=== PATIENT | male | born 1990 | race Caucasian/White ===

== ENCOUNTER 2017-06-01 16:29 | Inpatient (IN) | payer OTHER, SELFPAY ==
[~2017-06-01 16:29] MED LIST: ISOVUE-370 76%-LOCM 1 ML ONE
[2017-06-01] MEDS ORDERED: Morphine 2 MG/ML SYRINGE ONE (16:39)
[2017-06-01] MEDS ORDERED: Ondansetron HCl/PF 4 MG/2 ML Vial ONE (17:06)
[2017-06-01 17:18] LABS: #Basophils 0.1 thou/uL (0.0-0.2); #Eosinphils 0.2 thou/uL (0.0-0.7); #Lymphocytes 2.9 thou/uL (1.20-3.40); #Monocytes 0.6 thou/uL (0.11-0.59); #Neutrophils 6.8 thou/uL (1.40-6.50); %Basophils 0.6 % (0.0-1.0); %Eosinophils 1.7 % (0.0-10.0); %Lymphocytes 27.5 % (21.0-51.0); %Monocytes 5.6 % (0.0-10.0); Mean Platelet Volume 8.9 fL (7.4-10.4); Red Blood Cell (RBC) Count 5.01 mill/uL (4.70-6.10); White Blood Cell (WBC) Count 10.5 thou/uL (4.8-10.8)
[2017-06-01 17:24] LABS: Lactic Acid - Sepsis 2.5 mmol/L (0.5-2.2)
[2017-06-01 17:25] LABS: Prothrombin Time 14.2 SEC (12.0-14.7)
[2017-06-01 17:28] LABS: ALT (SGPT) 17 U/L (8-55); AST (SGOT) 26 U/L (5-34); Alkaline Phosphatase 73 U/L (40-150); Anion Gap 11 mmol/L (10-20); BUN (Urea Nitrogen) 9 mg/dL (8.9-20.6); Bilirubin, Total 0.3 mg/dL (0.2-1.2); Calc. Creatinine Clearance 0 mL/min (70-130); Calcium 8.2 mg/dL (7.8-10.44); Carbon Dioxide 22 mmol/L (22-29); Chloride 108 mmol/L (98-107); Estimated GFR-MDRD Greater than 90; Globulin 2.4 g/dL (2.4-3.5); Lipase 71 U/L (8-78); Protein, Total 6.2 g/dL (6.0-8.3)
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
--- NOTE | 2017-06-01 18:22 | CT ---
CONTRAST ENHANCED CT IMAGES OF THE CHEST AND ABDOMEN AND PELVIS WITH SAGITTAL AND CORONAL RECONSTRUC TION IMAGES OF THE THORACIC AND LUMBAR SPINE 06/01/17 HISTORY: Trauma with pain. CT CHEST: The lungs are well aerated. No evidence of rib fractures seen. The scapula, clavicle and sternum are unremarkable. No evidence of pulmonary parenchymal lesions seen. No evidence of hemo or pneumothora x seen. CT ABDOMEN AND PELVIS: Demonstrates the liver, spleen, gallbladder, pancreas, adrenal glands, and kidneys to be unremarkabl e. No evidence of periaortic lymphadenopathy seen. Osseous structures in the abdomen and pelvis are unremarkable. Sagittal and coronal reconstructed images of the thoracic and lumbar spine demonstrate minimal T1 an terior aspect compression fracture. No other osseous lesions seen. IMPRESSION: Again, subtle T1 compression fracture is seen. No other significant abnormality seen in the chest, a bdomen or pelvis. POS: [facility]
[2017-06-01 19:21] LABS: Bilirubin Negative (Negative); Blood, Urine Negative (Negative); Glucose, Urine (Dipstick) Negative (Negative); Ketone, Urine Negative (Negative); Nitrite Negative (Negative); Protein, Urine (Dipstick) Negative (Neg-Trace); Urobilinogen 0.2 mg/dL (0.2-1.0)
[2017-06-01 19:40] LABS: Amphetamine Not Detected (NotDetected); Methadone Not Detected (NotDetected); Methamphetamine Not Detected (NotDetected)
[2017-06-01] MEDS ORDERED: Ondansetron ODT 4 MG TAB SL PRN (19:55)
[2017-06-01] MEDS ORDERED: Ondansetron HCl/PF 4 MG/2 ML Vial IVP PRN ×2 (19:55→21:15)
[2017-06-01] MEDS ORDERED: Acetaminophen 325 MG TAB PO PRN (19:55)
[2017-06-01 20:13] VITALS: BMI 25.1
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
[2017-06-01] MEDS ORDERED: Dextrose 50% Abboject 50 ML SYRINGE SLOW IVP PRN (21:15)
[2017-06-01] MEDS ORDERED: traMADol HCl 50 MG TAB PO PRN ×2 (21:15)
[2017-06-01] MEDS ORDERED: Promethazine HCl 25 MG/ML VIAL IM PRN ×2 (21:15)
[2017-06-01] MEDS ORDERED: Dextrose 5% in Water 1,000 ML IV PRN (21:15)
[2017-06-01] MEDS ORDERED: Cyclobenzaprine 10 MG TAB PO PRN (21:15)
[2017-06-01] MEDS ORDERED: Ondansetron ODT 4 MG TAB PO PRN (21:15)
[2017-06-01] MEDS ORDERED: hydrALAZINE 20 MG/ML VIAL SLOW IVP PRN (21:15)
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
[2017-06-01] MEDS ORDERED: Famotidine 20 MG TAB PO SCH (21:30)
[2017-06-01] MEDS: Acetaminophen 500 MG TAB PO SCH (22:31)
[2017-06-01] MEDS: Sodium Chloride 0.9% 1,000 ML IV SCH (22:33)
[2017-06-01] MEDS ORDERED: Gabapentin 300 MG CAP PO SCH (23:45)
[2017-06-02] MEDS: Ketorolac Tromethamine 30 MG/ML VIAL IVP SCH ×3 (00:49→13:49)
[2017-06-02] MEDS: Acetaminophen 500 MG TAB PO SCH ×2 (04:15→09:15)
[2017-06-02] MEDS: Sodium Chloride 0.9% 1,000 ML IV SCH ×2 (06:04→06:48)
[2017-06-02 06:37] LABS: #Eosinphils 0.1 thou/uL (0.0-0.7); #Lymphocytes 2.5 thou/uL (1.20-3.40); #Monocytes 0.9 thou/uL (0.11-0.59); #Neutrophils 5.2 thou/uL (1.40-6.50); %Basophils 0.5 % (0.0-1.0); %Eosinophils 0.9 % (0.0-10.0); %Lymphocytes 28.9 % (21.0-51.0); Hematocrit 42.3 % (42.0-52.0); Mean Platelet Volume 9.8 fL (7.4-10.4); White Blood Cell (WBC) Count 8.7 thou/uL (4.8-10.8)
[2017-06-02 06:59] LABS: Anion Gap 9 mmol/L (10-20); BUN (Urea Nitrogen) 13 mg/dL (8.9-20.6); Calc. Creatinine Clearance 130 mL/min (70-130); Calcium 8.7 mg/dL (7.8-10.44); Carbon Dioxide 28 mmol/L (22-29); Chloride 105 mmol/L (98-107); Estimated GFR-MDRD Greater than 90
[2017-06-02] MEDS ORDERED: Famotidine 20 MG TAB PO SCH (09:00)
[2017-06-02] MEDS ORDERED: Gabapentin 300 MG CAP PO SCH (09:00)
[2017-06-02] MEDS ORDERED: TETANUS AND DIPHTHERIA TOX/PF 0.5 ML DISP.SYRIN IM ONE ×2 (09:00→16:00)
[2017-06-02] MEDS ORDERED: diphenhydrAMINE 25 MG CAP PO SCH (13:00)
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
[2017-06-02 13:23] VITALS: BP 123/66; TEMP 98.4
[2017-06-02] MEDS ORDERED: traZODone HCl 150 MG TAB PO SCH (21:00)
[2017-06-02] MEDS ORDERED: QUETIAPINE FUMARATE 150 MG PO SCH (21:00)
[2017-06-02] MEDS ORDERED: QUEtiapine Fumarate ER 50 MG TAB PO SCH (21:00)
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
[2017-06-03] MEDS ORDERED: FLU VACC QS2017-18 36 mo. & older 0.5 ML SYRINGE IM ONE (09:00)
== END 2017-06-02 17:17 | disposition home or self-care (01) | DRG 552 ==
LOC: ERS 16:29 → SURG B 19:33
PROVIDERS: ADMIT Specialist; ATTEND Specialist
DX: S12.110A Anterior displaced Type II dens fracture, initial encounter for closed fracture (principal); S22.010A Wedge compression fracture of first thoracic vertebra, initial encounter for closed fracture; F10.120 Alcohol abuse with intoxication, uncomplicated; T14.8XXA Other injury of unspecified body region, initial encounter; S01.01XA Laceration without foreign body of scalp, initial encounter; F17.210 Nicotine dependence, cigarettes, uncomplicated; S12.600A Unspecified displaced fracture of seventh cervical vertebra, initial encounter for closed fracture; S12.500A Unspecified displaced fracture of sixth cervical vertebra, initial encounter for closed fracture; Z83.3 Family history of diabetes mellitus; Z82.49 Family history of ischemic heart disease and other diseases of the circulatory system; V48.5XXA Car driver injured in noncollision transport accident in traffic accident, initial encounter; Y92.410 Unspecified street and highway as the place of occurrence of the external cause
CPT/HCPCS: 36415; 51701; 70450; 70486; 71010; 71260; 72125; 74177; 80048; 80053; 80306; 80307; 81003; 83605; 83690; 85025; 85610; 93005; 96361; 96374; A4216; G0390; G8978-GP-CI; G8979-GP-CI; G8980-GP-CI; G8987-GO-CI; G8988-GO-CI; G8989-GO-CI; J1885; J2270; J2405

== ENCOUNTER 2017-07-05 11:06 | Outpatient (CLI) | payer OTHER ==
--- NOTE | 2017-07-05 16:13 | RAD ---
CERVICAL SPINE THREE VIEWS: History: Follow up odontoid fracture. Comparison: CT cervical spine, 06-01-17, which revealed a type II odontoid fracture at the base of th e odontoid. FINDINGS: On today's three view study the odontoid fracture is seen on odontoid view with slight displacement o f the odontoid in relation to the body of C2. It does not appear significantly changed in position wh en compared to the prior CT. The other cervical vertebrae maintain height and alignment. The disc spaces are preserved. IMPRESSION: Odontoid fracture again noted without evidence of significant change from the prior CT. POS: [facility]
== END 2017-07-05 11:07 | disposition home or self-care (01) ==
LOC: TBSIIMAG 11:06
PROVIDERS: ATTEND Neurological Surgery
DX: S12.9XXD Fracture of neck, unspecified, subsequent encounter (principal)
CPT/HCPCS: 72040

== ENCOUNTER 2018-12-17 11:01 | Emergency (ER) | payer SELFPAY | END 2018-12-17 12:08 | disposition home or self-care (01) | LOC: ERS 11:01 | DX: J02.0 Streptococcal pharyngitis (principal); F41.9 Anxiety disorder, unspecified; F32.9 Major depressive disorder, single episode, unspecified; F20.9 Schizophrenia, unspecified | CPT/HCPCS: 87430; 99283 ==

== ENCOUNTER 2018-12-20 22:04 | Emergency (ER) | payer SELFPAY ==
--- NOTE | 2018-12-20 22:27 | CT ---
Head CT without contrast 12/20/2018: COMPARISON: 06/01/2017 HISTORY: Kicked in the right side by a horse, pain TECHNIQUE: Axial CT imaging at 5 mm intervals from vertex through skull base without contrast FINDINGS: There is polypoid mucosal thickening involving the maxillary sinus on the left, stable. The re is new partial opacification of the right maxillary sinus with an air-fluid level noted. There is soft tissue swelling and associated laceration anterior to the superior aspect of the right nasal bone. There is mild irregularity in the region of the orbital floor on the right which could signify fracture. CT examination of the facial bones advised. No intracranial hemorrhage, midline erinn ft, mass effect, or ventricular enlargement IMPRESSION: No intracranial hemorrhage. Soft tissue swelling in the right paranasal region. Questiona ble orbital floor fracture on the right, for which dedicated CT of the facial bones advised. Results called to Dr. Samuels 12/20/2018 10:20 PM
[2018-12-20] MEDS ORDERED: Bacitracin Zinc 1 Packet ONE (22:29)
--- NOTE | 2018-12-20 22:32 | CT ---
CT of facial bones: 12/20/2018 COMPARISON: 06/01/2017 HISTORY: Kicked in the face by a horse, right-sided pain Technique: axial CT imaging at 2.5 mm intervals through the facial bones with coronal and sagittal re formatted imaging. FINDINGS: There is soft tissue swelling superior to the nasal bone on the right with foci of subcutan eous gas consistent with laceration. There is mild periorbital soft tissue swelling on the right. There is mild mucosal thickening involving the right frontal sinus, stable. There is mild mucosal thi ckening of bilateral anterior ethmoid air cells, stable as well. New air-fluid level within right maxillary sinus with mucosal thickening. Stable polypoid mucosal thi ckening of left maxillary sinus. No displaced nasal bone fracture. The zygomatic arches and the pterygoid plates appear intact bilaterally. Neither temporomandibular joint is dislocated. There is a prominent posterior right mandibular dental diana and a prominent posterior right maxillary dental diana. There is a prominent posterior left maxillary dental diana. No acute mandibular fracture is apparent. Coronal reformatted imaging demonst rates no evidence for an orbital floor fracture or medial orbital wall fracture on either side. The orbits/globes appear symmetric with no acute intraconal abnormality noted on either side. IMPRESSION: Soft tissue swelling/laceration as detailed above. No associated fracture. Results called to Dr. Samuels at 10:30 PM hours 12/20/2018
[2018-12-20] MEDS ORDERED: Lidocaine 1% w/Epinephrine 1:100K 20 ML VIAL ONE (23:22)
== END 2018-12-21 00:34 | disposition home or self-care (01) ==
LOC: ERS 22:04
DX: S01.21XA Laceration without foreign body of nose, initial encounter (principal); S05.11XA Contusion of eyeball and orbital tissues, right eye, initial encounter; H57.09 Other anomalies of pupillary function; F41.9 Anxiety disorder, unspecified; F32.9 Major depressive disorder, single episode, unspecified; F20.9 Schizophrenia, unspecified; F17.210 Nicotine dependence, cigarettes, uncomplicated; Z79.899 Other long term (current) drug therapy; W55.12XA Struck by horse, initial encounter
CPT/HCPCS: 12013; 70450; 70486; 94760; J2001

== ENCOUNTER 2019-01-11 19:14 | Emergency (ER) | payer SELFPAY ==
--- NOTE | 2019-01-11 20:46 | CT ---
EXAM: CT Facial Bones WO Con PROVIDED CLINICAL HISTORY: Bowel internasal discharge following being kicked by a horse on 12/20/2018. COMPARISON: 12/20/2018 FINDINGS: There has been resolution of subcutaneous soft tissue swelling in the right periorbital location and adjacent to the right nasal bone. There has also been resolution of the previously seen subcutaneous emphysema adjacent to the right nasal bone. There is almost complete opacification of the left maxillary antrum present on today's examination wh ich has increased from prior exam. There is mucosal thickening seen involving the bilateral ethmoidal air cells, right maxillary antrum, bilateral sphenoid sinuses, and involving the right fron meliton sinus and right frontoethmoidal recess. The air-fluid level previously seen in the right maxillary antrum has resolved. There is a stable ununited odontoid fracture which is unchanged compared to recent exam as well as a prior exam on 06/01/2017. There is no evidence of a fracture involving the facial bones. Temporomandibular joints are normally located without dislocation. Dental caries are again seen involving right mandibular and maxillary teeth. The orbits are normal and symmetric in appearance and unchanged from prior study. IMPRESSION: 1. Prominent sinus disease as described above with interval increase in opacification of the left max illary antrum compared to prior study, but there has been resolution of air-fluid level in the right maxillary antrum. 2. Resolution of subcutaneous soft tissue swelling and subcutaneous emphysema adjacent to the right n ervin bone and in the right periorbital location. 3. Stable ununited odontoid fracture.
== END 2019-01-11 21:08 | disposition home or self-care (01) ==
LOC: ERS 19:14
DX: J32.0 Chronic maxillary sinusitis (principal); F17.210 Nicotine dependence, cigarettes, uncomplicated; F41.9 Anxiety disorder, unspecified; F20.9 Schizophrenia, unspecified
CPT/HCPCS: 70486; 93005

== ENCOUNTER 2019-04-30 15:57 | Emergency (ER) | payer SELFPAY ==
[2019-04-30] MEDS ORDERED: Ondansetron PF 4 MG/2 ML Vial ONE (16:16)
[2019-04-30] MEDS ORDERED: Morphine 10 MG/ML VIAL ONE (16:16)
[2019-04-30 16:33] LABS: #Basophils 0.1 thou/uL (0.0-0.2); #Eosinphils 0.3 thou/uL (0.0-0.7); #Lymphocytes 3.9 thou/uL (1.20-3.40); #Monocytes 0.8 thou/uL (0.11-0.59); #Neutrophils 6.8 thou/uL (1.40-6.50); %Basophils 0.7 % (0.0-1.0); %Eosinophils 2.3 % (0.0-10.0); %Lymphocytes 32.8 % (21.0-51.0); %Monocytes 6.6 % (0.0-10.0); %Neutrophils 57.7 % (42.0-75.0); Hemoglobin 16.6 g/dL (14.0-18.0); Mean Corpuscular HGB CONC 34.7 g/dL (32.0-36.0); Mean Corpuscular Hemoglobin 31.2 pg (27.0-31.0); Mean Corpuscular Volume 89.9 fL (78.0-98.0); Mean Platelet Volume 9.9 fL (7.4-10.4); Platelet Count 178 thou/uL (130-400); RBC Distribution Width 12.3 % (11.5-14.5); Red Blood Cell (RBC) Count 5.32 mill/uL (4.70-6.10); White Blood Cell (WBC) Count 11.8 thou/uL (4.8-10.8)
[2019-04-30 17:04] LABS: Anion Gap 15 mmol/L (10-20); BUN (Urea Nitrogen) 14 mg/dL (8.9-20.6); Calc. Creatinine Clearance 0 mL/min (70-130); Calcium 10.3 mg/dL (7.8-10.44); Carbon Dioxide 27 mmol/L (22-29); Chloride 100 mmol/L (98-107); Estimated GFR-MDRD Greater than 90; Glucose 83 mg/dL (70-105); Potassium 4.9 mmol/L (3.5-5.1); Sodium 137 mmol/L (136-145)
--- NOTE | 2019-04-30 17:14 | RAD ---
FRONTAL RADIOGRAPH CHEST: Date: 04-30-19 History: Chest pain FINDINGS: Lungs are clear. Heart and mediastinal contours are unremarkable. IMPRESSION: No acute findings. POS: [facility]
[2019-04-30] MEDS ORDERED: Morphine 2 MG/ML SYRINGE ONE (18:09)
[2019-04-30] MEDS ORDERED: Bacitracin 1 PK ONE (18:10)
== END 2019-04-30 18:39 | disposition home or self-care (01) ==
LOC: ERS 15:57
DX: T23.102A Burn of first degree of left hand, unspecified site, initial encounter (principal); T22.012A Burn of unspecified degree of left forearm, initial encounter; F41.9 Anxiety disorder, unspecified; F32.9 Major depressive disorder, single episode, unspecified; F20.9 Schizophrenia, unspecified; F17.210 Nicotine dependence, cigarettes, uncomplicated
CPT/HCPCS: 16020; 71045; 80048; 84484; 85025; 93005; 96361; 96374; 96375; 96376; J2270; J2405

== ENCOUNTER 2020-09-05 20:10 | Emergency (ER) | payer SELFPAY | END 2020-09-05 20:57 | disposition left against medical advice (07) | LOC: ERS 20:10 | DX: Z53.21 Procedure and treatment not carried out due to patient leaving prior to being seen by health care provider (principal) ==

== ENCOUNTER 2020-11-02 23:14 | Emergency (ER) | payer SELFPAY | END 2020-11-03 02:13 | disposition left against medical advice (07) | LOC: ERS 23:14 | DX: Z53.21 Procedure and treatment not carried out due to patient leaving prior to being seen by health care provider (principal) ==